=== PATIENT | male | born 2000 | race Caucasian/White ===

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

== ENCOUNTER 2023-10-26 12:00 | Emergency (ER) | payer SELFPAY ==
[2023-10-26 12:00] VITALS: BP 151/78; PULSE 78; RESP 16; TEMP 36.1; O2SAT 98
--- NOTE | 2023-10-26 12:09 | ED.WOUNDLAC ---
HPI - Wound/Laceration General Chief Complaint: Wound/Laceration Stated Complaint: laceration Time Seen by Provider: 10/26/23 12:08 History of Present Illness HPI narrative: lacerated right hand at work on a metal sheet. prior to arrival, no other injuries Related Data Home Medications Medication Instructions Recorded Confirmed No Home Medications 02/08/20 10/26/23 Allergies Allergy/AdvReac Type Severity Reaction Status Date / Time No Known Allergies Allergy Unknown Verified 10/26/23 12:05 Review of Systems Review of Systems: All systems reviewed & are unremarkable except as noted in HPI and below Exam Narrative: General appearance: Well-developed, well-nourished Skin: Normal color, right hand exam showed 2 cm laceration at the medial side of right hand, flap, no active bleeding, subcutaneous Vascular: Normal peripheral pulses, normal capillary refill. 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, no gross motor deficit Procedures Laceration Laceration 1: Date: 10/26/23 Time: 12:32 Site: hand Side (If applicable): right Size (cm): 2 Description: flap Depth: simple, single layer Local Anesthetic: lidocaine 1% and with epi Amount of anesthesia used (mL): 5 Pre-repair: wound explored and irrigated ====== Skin Level ====== Skin layer closed with: other (ethilon) Size (cm): 6-0 Number of sutures: 4 Technique: simple, interrupted ====== Subcutaneous Layer ====== ====== Muscle Layer ====== ====== Tendon Layer ====== MDM - Wound/Laceration [facility] Narrative Medical decision making narrative: patient came with laceration right hand, for sutures, 6 0 ethilon, topical Neosporin, stitches to be removed in 8 days Differential Diagnosis Differential diagnosis: Likely laceration Critical Care Time Critical Care Time Critical Care Time: No Discharge Plan Discharge Clinical Impression: Laceration Patient Disposition: Home, Self-Care Condition: Stable Instructions: Laceration (DC) Additional Instructions: Return if symptoms are worsening , call your family physician for appointment, take Tylenol as as needed for aches and pain, continue home medications., remove sutures in 8 days, keep hand elevated, take Tylenol, ibuprofen as needed, topical Neosporin 3 times a day.for 3 days Prescriptions: No Action No Home Medications Follow-up/Referrals: UNKNOWN,DOCTOR [Primary Care Provider] - Stand Alone Forms: Work/School Release IP
[2023-10-26] MEDS: LIDO 1%/EPINEPHRINE 1:100,000 20 ML VIAL 5 ML INFILTRATE (12:16)
[2023-10-26] MEDS: TETANUS,DIPHTHERIA,AC PERTUSSIS ADULT 0.5 ML (ADACEL) IM (12:17)
--- NOTE | 2023-10-26 12:20 | PC.NURSE ---
SUTURE TRAY AT BEDSIDE
== END 2023-10-26 12:35 | disposition home or self-care (01) ==
PROVIDERS: Emergency Provider Emergency Medicine
DX: S61.411A Laceration without foreign body of right hand, initial encounter (principal); Z23 Encounter for immunization; W45.8XXA Other foreign body or object entering through skin, initial encounter; Y99.0 Civilian activity done for income or pay
CPT/HCPCS: 12001; 90471; 90715; 99282